=== PATIENT | male | born 1990 | race Caucasian/White ===

== ENCOUNTER 2019-11-02 11:06 | Emergency (ER) | payer MEDICAID, SELFPAY ==
[2019-11-02 11:22] VITALS: BP 125/75; PULSE 99; RESP 20; TEMP 36.8; O2SAT 99
[2019-11-02 11:28] VITALS: RESP 18
--- NOTE | 2019-11-02 11:36 | ED.FEVER ---
HPI - Fever General Chief Complaint: Fever Stated Complaint: cough/runny nose Time Seen by Provider: 11/02/19 11:21 Source: patient Mode of arrival: ambulatory Limitations: no limitations History of Present Illness HPI Narrative: This is a 29-year-old male that presents the emergency department for cold symptoms x3 days. Reports fever, cough, and rhinorrhea. Reports when symptoms first started he noted some wheezing as well. Denies chest pain or shortness of breath. Related Data Allergies Allergy/AdvReac Type Severity Reaction Status Date / Time Penicillins Allergy Hives Verified 11/02/19 11:24 Review of Systems Review of Systems: Narrative: CONSTITUTIONAL: Reports fever, chills ENT: Reports rhinorrhea, congestion, sore throat. Denies otalgia. CARDIOVASCULAR: Denies chest pain RESPIRATORY: Reports cough. Denies dyspnea. All systems reviewed & are unremarkable except as noted in HPI and below PMFSH Past Medical History Medical History (Updated 11/02/19 @ 11:42 by Olivia Ramos PA-C) No significant medical problems Social History Social History (Updated 11/02/19 @ 11:40 by Olivia Ramos PA-C) Smoking status: Never smoker Exam Narrative: Exam Narrative: GENERAL: Well-appearing, well-nourished, and in no acute distress. HEAD: Normocephalic, atraumatic. EYES: EOMI. ENT: Nares clear, no rhinorrhea or epistaxis. Mucous membranes moist. Oropharynx without tonsillar hypertrophy exudate or other lesions. Bilateral TMs pearly rodriguez non-bulging NECK: Supple. No adenopathy or masses. CHEST: No respiratory distress. Mild wheezing in the bases. No rales or rhonchi HEART: Regular rate and rhythm. No murmur heard. Normal peripheral pulses. EXTREMITIES: Normal range of motion. No edema. SKIN: Warm, dry, no rash. NEURO: No focal deficits. Alert and oriented x3. PSYCH: Normal mood and affect Course Vital Signs Vital signs: Vital Signs Temperature 98.2 F 11/02/19 11:22 Pulse Rate 99 11/02/19 11:22 Respiratory Rate 20 11/02/19 11:22 Blood Pressure 125/75 11/02/19 11:22 Pulse Oximetry 99 11/02/19 11:22 Temperature 98.2 F 03/10/20 11:22 Pulse Rate 99 11/02/19 11:22 Respiratory Rate 18 11/02/19 11:28 Blood Pressure 125/75 11/02/19 11:22 Pulse Oximetry 99 11/02/19 11:22 MDM - Fever MDM Narrative Medical decision making narrative: Patient presents the emergency department for cold symptoms x3 days. He is afebrile and nontoxic-appearing. Lungs are clear, other than mild wheezing at the bases. Patient offered nebulizer treatment in the ED, he does not think this is needed at this time. He will be sent home with an albuterol inhaler. Patient is influenza A positive. Patient is outside treatment window for Tamiflu. He was instructed on symptomatic care of influenza. He is to follow-up with primary care doctor. He was given warnings to return to the ER Lab Data Attestation: I reviewed the patient's lab results. Labs: Influenza A Screen Positive Reference Range: Negative Influenza B Screen Negative Reference Range: Negative Critical Care Time Critical Care Time Critical Care Time: No Discharge Plan Discharge Clinical Impression: Influenza A Patient Disposition: Home, Self-Care Condition: Stable Instructions: Influenza (ED) Additional Instructions: Return to the emergency department for worsening symptoms, or any other concerns Remain well-hydrated, get plenty of rest, no work or school for several days. Albuterol as needed for shortness of breath or wheezing. Take Tylenol or Motrin [id number] for pain as needed. Flonase for nasal congestion. Zyrtec for runny nose. Lozenges or Chloraseptic spray for sore throat. Follow up with your primary care doctor Prescriptions: New albuterol sulfate 90 mcg/actuation aerosol powdr breath activated 2 inhalation INHALATION Q6H PRN (Reason: shortness of breath
== END 2019-11-02 12:10 | disposition home or self-care (01) ==
LOC: ANHED 11:46
PROVIDERS: Emergency Provider Emergency Medicine; PCP Emergency Medicine
DX: J10.1 Influenza due to other identified influenza virus with other respiratory manifestations (principal)
CPT/HCPCS: 87804; 99283

== ENCOUNTER 2022-11-26 14:46 | Emergency (ER) | payer OTHER, SELFPAY ==
[2022-11-26 14:59] VITALS: BP 114/88; PULSE 120; RESP 16; TEMP 36.8; O2SAT 99
--- NOTE | 2022-11-26 17:13 | PC.NURSE ---
Patient up to triage desk to notify this RN that he no longer wanted to wait to be seen. Wound care and signs of infection discussed. Patient encouraged to stay but declined. Encouraged to return with any worsening or new sx.
== END 2022-11-26 17:13 | disposition left against medical advice (07) ==
PROVIDERS: PCP Emergency Medicine
DX: Z53.21 Procedure and treatment not carried out due to patient leaving prior to being seen by health care provider (principal)
CPT/HCPCS: 99199